=== PATIENT | female | born 1985 | race Caucasian/White ===

== ENCOUNTER → 2017-12-14 | Outpatient (CLI) | payer BC | END | disposition home or self-care (01) | LOC: KCIC US 08:48 | DX: R79.89 Other specified abnormal findings of blood chemistry (principal); R10.84 Generalized abdominal pain | CPT/HCPCS: 76700 ==

== ENCOUNTER → 2018-02-12 | Day surgery (SDC) | payer OTHER, BC ==
[~2018-02-12] MED LIST: DEXAMETHASONE SOD PHOS 20 MG/5 ML VIAL.; GLYCOPYRROLATE 1 MG/5 ML VIAL.; IOHEXOL 300 MG/ML 100ML VIAL.; KETOROLAC 30 MG/ML INJ FOR OR. INJ; LIDOCAINE 1% PF 2 ML VIAL. ID; MIDAZOLAM HCL/PF 2 MG/2 ML VIAL.; MORPHINE SULFATE 4 MG/ML DISP.SYRIN. IV; NEOSTIGMINE METHYLSULFATE 5 MG/5 ML SYRINGE.; ONDANSETRON PF 4 MG/2 ML VIAL.; ONDANSETRON PF 4 MG/2 ML VIAL. IV; PROCHLORPERAZINE 10 MG/2 ML VIAL. IV; PROPOFOL 20 ML IV; ROCURONIUM 50 MG/5 ML VIAL.; SEVOFLURANE 61 TO 120 MINUTES. IH; SURGICEL HEMOSTAT 4X8 EACH.; ceFAZolin 2GM PREMIX 2 GM/50 ML BAG IV; fentaNYL PF VIAL 100 MCG/2 ML VIAL; fentaNYL PF VIAL 100 MCG/2 ML VIAL IV
[2018-02-12] MEDS: IV RINGERS,LACTATED 1000ML 1,000 ML IV (11:16)
[2018-02-12] MEDS: SCOPOLAMINE 1.5MG PATCH. TD (11:16)
[2018-02-12 11:27] LABS: NEG OBC UR NEG; POS OBC UR POS; U PREG PATIENT NEGATIVE (NEG)
[2018-02-12] MEDS: BUPIVACAINE-EPI 0.25%-1:200000 50 ML VIAL. (11:40)
[2018-02-12] MEDS: IBUPROFEN 800 MG TABLET. PO (12:59)
== END | disposition home or self-care (01) ==
LOC: SURG 10:46
DX: K81.1 Chronic cholecystitis (principal); I10 Essential (primary) hypertension; F98.8 Other specified behavioral and emotional disorders with onset usually occurring in childhood and adolescence; E16.1 Other hypoglycemia; Z98.890 Other specified postprocedural states; Z72.89 Other problems related to lifestyle; Z79.899 Other long term (current) drug therapy; Z88.5 Allergy status to narcotic agent
CPT/HCPCS: 47562; 81025; 88304; J0690; J1100; J1885; J2250; J2405; J2704; J2710; J3010; J3490; J7030; Q9967